=== PATIENT | female | born 1970 | race Caucasian/White ===

== ENCOUNTER 2017-09-21 11:45 | Emergency (ER) | payer OTHER ==
--- NOTE | 2017-09-21 11:53 | ED PDOC ---
Arrival/HPI - General Time Seen by Provider: 09/21/17 11:46 Historian: Patient - History of Present Illness Narrative History of Present Illness (Text): 09/21/17 12:34 A 47 year old female, whose past medical history includes hypertension, presents to the emergency department for evaluation of nasal packing. Patient reports she had left nare packed yesterday at [facility] in [facility]. States finding minimal blood on gauze. Patient denies of any current active bleeding. Also, patient mentions she has an appointment to meet ENT at 13:00 but is refusing to go due to not having insurance. Patient has not other complaints at this time. No PMD 09/21/17 17:52 Past Medical History - Provider Review Nursing Documentation Reviewed: Yes - Tetanus Immunization Tetanus Immunization: Unknown - Cardiac Hx Hypertension: Yes - Pulmonary Hx Respiratory Disorders: No - Neurological Hx Neurological Disorder: No - HEENT Hx HEENT Disorder: No - Renal Hx Renal Disorder: No - Endocrine/Metabolic Hx Endocrine Disorders: No - Hematological/Oncological Hx Blood Disorders: No - Integumentary Hx Dermatological Disorder: No - Musculoskeletal/Rheumatological Hx Musculoskeletal Disorders: No - Gastrointestinal Hx Gastrointestinal Disorders: No - Genitourinary/Gynecological Hx Genitourinary Disorders: No - Psychiatric Hx Psychophysiologic Disorder: No Hx Substance Use: No - Past Surgical History Past Surgical History: No Previous - Suicidal Assessment Feels Threatened In Home Enviroment: No Family/Social History - Physician Review Nursing Documentation Reviewed: Yes Family/Social History: No Known Family HX Smoking Status: Never Smoked Hx Alcohol Use: No Hx Substance Use: No Hx Substance Use Treatment: No Allergies/Home Meds Allergies/Adverse Reactions: Allergies No Known Allergies Allergy (Verified 04/27/15 17:06) Home Medications: Home Meds Medication Instructions Recorded Confirmed Amlodipine Besylate 5 mg PO DAILY 11/11/14 09/21/17 Metoprolol Tartrate [Metoprolol 25 mg PO BID 11/11/14 09/21/17 Tartrate] Review of Systems - Physician Review All systems were reviewed & negative as marked: Yes - Review of Systems Constitutional: absent: Other (has no pain) Eyes: Other (nasal packing evaluation; no active bleeding at this time) Physical Exam Vital Signs Reviewed: Yes Vital Signs Temp Pulse Resp BP Pulse Ox 09/21/17 12:11 98.6 F 70 20 135/82 99 09/21/17 11:46 98.6 F 70 20 135/82 99 Temperature: Afebrile Blood Pressure: Normal Pulse: Regular Respiratory Rate: Normal Appearance: Positive for: Well-Appearing Pain Distress: None Mental Status: Positive for: Alert and Oriented X 3 - Systems Exam Nose (Internal): Present: No Active Bleeding, Other (left nare packing) Medical Decision Making ED Course and Treatment: 09/21/17 12:36 Impression: 47 year old female here for nasal packing evaluation. Physical exam shows left nare packing and no active bleeding. minimal bloo Plan: -- Reassess and disposition Prior Visits: Notes and results from previous visits were reviewed. Patient was last seen in the emergency department on 04/27/2015 for concerns of redness to the left eye. Patient d/c home. Progress Notes: 09/21/2017 12:37 Offered patient to remove packing, evaluate, and replace packing but patient refuses. No active bleeding at this time. suspect minimal blood on gauze 2/2 release from [facility] advise outpt fu with ent. 09/21/17 17:52 - Scribe Statement The provider has reviewed the documentation as recorded by the Tucker Julian Provider Scribe Attestation: All medical record entries made by the Scribe were at my direction and personally dictated by me. I have reviewed the chart and agree that the record accurately reflects my personal performance of the history, physical exam, medical decision making, and the department course for this patient. I have also personally directed, reviewed, and agree with the discharge instructions and disposition. Disposition/Present on Arrival - Present on Arrival Any Indicators Present on Arrival: No History of DVT/PE: No History of Uncontrolled Diabetes: No Urinary Catheter: No History Surgical Site Infection Following: None - Disposition Have Diagnosis and Disposition been Completed?: Yes Diagnosis: Epistaxis Disposition: HOME/ ROUTINE Disposition Time: 12:00 Condition: STABLE Discharge Instructions (ExitCare): Nosebleed (ED) Additional Instructions: please follow up with ent. return to er with worsening symptoms or concern. Referrals: Govind Cartagena DO [Staff Provider] - Follow up with primary Forms: [employer] (Polish)
[2017-09-21 12:11] VITALS: BMI 44.9
[2017-09-21 12:16] VITALS: BP 135/82; PULSE 70; RESP 20; TEMP 98.6; O2SAT 99
== END 2017-09-21 12:40 | disposition home or self-care (01) ==
LOC: ED 11:45
DX: R04.0 Epistaxis (principal)